=== PATIENT | female | born 1950 | race Caucasian/White ===

== ENCOUNTER 2016-12-04 03:46 | Emergency (ER) | payer OTHER, MEDICAID ==
[~2016-12-04] VITALS: Ht 182.9 cm; Wt 125.0 kg
[2016-12-04] MEDS ORDERED: SODIUM CHLOR 0.9% 1000 ML INJ 1,000 ML IV SCH (03:59)
[2016-12-04 04:00] VITALS: BP 127/87; PULSE 90; RESP 16; TEMP 98.3; O2SAT 96
[2016-12-04] MEDS ORDERED: PRIL20TA2 PO (04:00)
[2016-12-04] MEDS ORDERED: DIPHTH/TETANUS/ACEL PERTUSSIS (BOOSTER) 0.5 ML VIAL/PFS IM ONE (04:00)
[2016-12-04] MEDS ORDERED: ONDANSETRON HCL 4 MG/2 ML VIAL IVP ONE (04:00)
[2016-12-04] MEDS ORDERED: MORPHINE SULFATE 4 MG/ML INJ IV ONE (04:00)
[2016-12-04] MEDS ORDERED: SODIUM CHLORIDE 0.9% FLUSH 10 ML FLUSH IVF PRN (04:00)
[2016-12-04] MEDS ORDERED: LISI-515 PO (04:00)
[2016-12-04 04:06] VITALS: RESP 16; O2SAT 97
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
[2016-12-04 04:30] LABS: AUTOMATED NEUTROPHIL # 2.8 TH/MM3 (1.8-7.7); BASOPHIL % 0.5 % (0.0-2.0); EOSINOPHIL # 0.6 TH/MM3 (0-0.4); EOSINOPHIL % 6.7 % (0.0-4.0); HEMO FLAGS DIFF FINAL; LYMPH % 52.6 % (9.0-44.0); LYMPHOCYTE # 4.6 TH/MM3 (1.0-4.8); MEAN CELL VOLUME 95.2 FL (80.0-100.0); MEAN CORPUSCULAR HEMOGLOBIN 32.7 PG (27.0-34.0); MEAN CORPUSCULAR HGB CONC 34.3 % (32.0-36.0); MONO % 8.5 % (0.0-8.0); NEUT % 31.7 % (16.0-70.0); PLATELET COUNT 263 TH/MM3 (150-450); RED BLOOD COUNT 4.51 MIL/MM3 (4.00-5.30); RED CELL DISTRIBUTION WIDTH 13.9 % (11.6-17.2); WHITE BLOOD COUNT 8.7 TH/MM3 (4.0-11.0)
[2016-12-04 04:51] LABS: APTT (PATIENT) 23.6 SEC (24.3-30.1); INTERNATIONAL NORMALIZED RATIO 1.1 RATIO; PROTHROMBIN TIME - PATIENT 11.8 SEC (9.8-11.6)
[2016-12-04 04:53] LABS: BICARBONATE 20.2 MEQ/L (21.0-32.0)
[2016-12-04 04:54] LABS: POTASSIUM 4.6 MEQ/L (3.5-5.1)
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
[2016-12-04] MEDS ORDERED: IOHEXOL 350 MG/ML 10 ML VIAL (for RAD DIAG) IV ONE (05:28)
[2016-12-04 05:40] VITALS: BP 139/53; PULSE 92; RESP 18; O2SAT 95
[2016-12-04 05:53] LABS: BACTERIA, URINE MOD /hpf; BLOOD, URINE MOD (NEG); COMMENT (UR) CULTURE INDICATED; CULTURE IF INDICATED CULTURE INDICATED; GLUCOSE,URINE NEG (NEG); KETONE, URINE NEG (NEG); MUCUS URINE FEW /lpf (OCC); NITRITE,URINE NEG (NEG); SQUAMOUS EPITHELIAL CELL URINE 1 /hpf (0-5); URINE COLOR YELLOW (YELLW/STRAW)
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
[2016-12-04] MEDS ORDERED: IBUP-232 PO (06:31)
[2016-12-04] MEDS ORDERED: CYCL5TAB PO (06:31)
[2016-12-04 06:37] VITALS: BP 112/78
[2016-12-04] MEDS ORDERED: ONDANSETRON HCL 4 MG/2 ML VIAL IV PUSH ONE (06:45)
--- NOTE | 2016-12-04 14:36 | EKG ---
Date Performed: 12/04/2016 Time Performed: 03:58:26 PTAGE: 66 years EKG: Sinus rhythm NORMAL ECG NO PREVIOUS TRACING DOCTOR: Gonsalo [place] Interpretating Date/Time 12/04/2016 14:34:01
[2016-12-04] MEDS ORDERED: ZOFR4TAB3 SL (19:10)
== END 2016-12-04 07:02 | disposition home or self-care (01) ==
LOC: NEPC 03:46
DX: S09.90XA Unspecified injury of head, initial encounter (principal); S20.212A Contusion of left front wall of thorax, initial encounter; S20.211A Contusion of right front wall of thorax, initial encounter; S80.02XA Contusion of left knee, initial encounter; S29.012A Strain of muscle and tendon of back wall of thorax, initial encounter; S73.101A Unspecified sprain of right hip, initial encounter; V43.52XA Car driver injured in collision with other type car in traffic accident, initial encounter; Y92.414 Local residential or business street as the place of occurrence of the external cause; I10 Essential (primary) hypertension
CPT/HCPCS: 70450; 71010; 71260; 72125; 73564; 74177; 80048; 81001; 85025; 85610; 85730; 86850; 86900; 86901; 87086; 90715; 93005; 96374; 96375; 99285; J2270; J2405; J7030; Q9967

== ENCOUNTER 2016-12-04 16:48 | Emergency (ER) | payer MEDICAID ==
[~2016-12-04] VITALS: Ht 182.9 cm; Wt 127.2 kg
[~2016-12-04 16:48] MED LIST: CYCL5TAB PO; IBUP-232 PO; LISI-515 PO; PRIL20TA2 PO
[2016-12-04 16:51] VITALS: BP 142/86; PULSE 97; RESP 15; TEMP 98.4; O2SAT 98
[2016-12-04 18:00] VITALS: BP 133/64; PULSE 76; RESP 16; O2SAT 98
[2016-12-04] MEDS ORDERED: SODIUM CHLOR 0.9% 1000 ML INJ 1,000 ML IV SCH (18:02)
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
[2016-12-04] MEDS ORDERED: SODIUM CHLORIDE 0.9% FLUSH 10 ML FLUSH IV FLUSH PRN (18:15)
[2016-12-04] MEDS ORDERED: ONDANSETRON HCL 4 MG/2 ML VIAL IVP ONE (18:15)
[2016-12-04] MEDS ORDERED: MORPHINE SULFATE 4 MG/ML INJ IV PUSH ONE (18:15)
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
[2016-12-04 18:47] LABS: AUTOMATED NEUTROPHIL # 7.3 TH/MM3 (1.8-7.7); BASOPHIL # 0.1 TH/MM3 (0-0.2); BASOPHIL % 0.9 % (0.0-2.0); EOSINOPHIL % 0.4 % (0.0-4.0); HEMATOCRIT 40.5 % (35.0-46.0); HEMO FLAGS DIFF FINAL; LYMPH % 21.3 % (9.0-44.0); LYMPHOCYTE # 2.3 TH/MM3 (1.0-4.8); MEAN CELL VOLUME 94.2 FL (80.0-100.0); MEAN CORPUSCULAR HEMOGLOBIN 32.9 PG (27.0-34.0); MEAN CORPUSCULAR HGB CONC 34.9 % (32.0-36.0); MONO % 8.4 % (0.0-8.0); PLATELET COUNT 239 TH/MM3 (150-450); RED CELL DISTRIBUTION WIDTH 13.2 % (11.6-17.2); WHITE BLOOD COUNT 10.6 TH/MM3 (4.0-11.0)
[2016-12-04] MEDS ORDERED: ZOFR4TAB3 SL (19:10)
== END 2016-12-04 19:26 | disposition home or self-care (01) ==
LOC: NEPD 16:48
DX: S09.90XD Unspecified injury of head, subsequent encounter (principal); R11.2 Nausea with vomiting, unspecified; I10 Essential (primary) hypertension
CPT/HCPCS: 70450; 80048; 85025; 96374; 96375; 99285; J2270; J2405; J7030

== ENCOUNTER 2016-12-07 12:03 | Emergency (ER) | payer MEDICAID ==
[~2016-12-07] VITALS: Ht 182.9 cm; Wt 130.0 kg
[~2016-12-07 12:03] MED LIST changes: +ZOFR4TAB3 SL
[2016-12-07 12:09] VITALS: BP 113/71; PULSE 69; RESP 14; TEMP 98.3; O2SAT 95
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
[2016-12-07] MEDS ORDERED: HYDR-3533 PO ×2 (15:07→15:08)
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
== END 2016-12-07 15:58 | disposition home or self-care (01) ==
LOC: NEPK 12:03
DX: S20.219A Contusion of unspecified front wall of thorax, initial encounter (principal); S80.02XD Contusion of left knee, subsequent encounter; S76.011A Strain of muscle, fascia and tendon of right hip, initial encounter; S09.90XA Unspecified injury of head, initial encounter; J45.909 Unspecified asthma, uncomplicated; K21.9 Gastro-esophageal reflux disease without esophagitis; I10 Essential (primary) hypertension; V49.9XXA Car occupant (driver) (passenger) injured in unspecified traffic accident, initial encounter
CPT/HCPCS: 99283